=== PATIENT | female | born 1975 | race Caucasian/White ===

== ENCOUNTER → 2020-03-14 | Outpatient (CLI) | payer OTHER ==
[~2020-03-14] MED LIST: IBUPROFEN800 MG PO; NEURONTIN 300300 MG PO; PREDNISONE20 MG PO; ROBAXIN500 MG PO
[2020-03-14 12:36] LABS: HEMOGLOBIN 12.6 gm/dl (12.3-15.3); RED BLOOD COUNT 3.71 M/UL (4.00-5.10); WHITE BLOOD COUNT 4.2 K/UL (4.5-11.0)
[2020-03-14 13:02] LABS: BUN/CREATININE RATIO 16 (0-10)
== END ==
LOC: LAB 12:07
PROVIDERS: Family Medicine
DX: E78.2 Mixed hyperlipidemia (principal); N95.1 Menopausal and female climacteric states
CPT/HCPCS: 36415; 80053; 80061; 83001; 83002; 85027

== ENCOUNTER → 2020-04-13 | Outpatient (CLI) | payer OTHER | LOC: RAD 11:52 | DX: R05 Cough (principal) | CPT/HCPCS: 71046 ==

== ENCOUNTER → 2020-04-15 | Outpatient (CLI) | payer OTHER | LOC: MAMO 04-08 08:30 → EXRD 04-08 09:30 → MAMO 09:05 | DX: Z12.31 Encounter for screening mammogram for malignant neoplasm of breast (principal); Z13.820 Encounter for screening for osteoporosis; Z78.0 Asymptomatic menopausal state; Z79.52 Long term (current) use of systemic steroids; N63.20 Unspecified lump in the left breast, unspecified quadrant; N63.10 Unspecified lump in the right breast, unspecified quadrant; R92.1 Mammographic calcification found on diagnostic imaging of breast; M85.88 Other specified disorders of bone density and structure, other site | CPT/HCPCS: 77063; 77067; 77080 ==

== ENCOUNTER → 2020-05-25 | Outpatient (CLI) | payer OTHER | LOC: KOH-I 15:24 | DX: M79.604 Pain in right leg (principal); M79.605 Pain in left leg | CPT/HCPCS: 93922; 93925 ==

== ENCOUNTER → 2020-05-28 | Outpatient (CLI) | payer OTHER | LOC: MAMO 09:59 | DX: R92.8 Other abnormal and inconclusive findings on diagnostic imaging of breast (principal); N60.02 Solitary cyst of left breast; N60.01 Solitary cyst of right breast | CPT/HCPCS: 76641-LT; 76641-RT; 77066; G0279 ==

== ENCOUNTER → 2020-05-29 | Outpatient (CLI) | payer OTHER ==
[2020-05-29 09:41] LABS: HEMOGLOBIN 12.8 gm/dl (12.3-15.3); RED BLOOD COUNT 3.69 M/UL (4.00-5.10); WHITE BLOOD COUNT 5.9 K/UL (4.5-11.0)
[2020-05-29 10:08] LABS: BUN/CREATININE RATIO 22 (0-10)
== END ==
LOC: LAB 08:31
PROVIDERS: Family Medicine
DX: E78.2 Mixed hyperlipidemia (principal); R60.9 Edema, unspecified; R73.9 Hyperglycemia, unspecified
CPT/HCPCS: 36415; 80053; 80061; 83036; 85027

== ENCOUNTER → 2020-06-26 | Outpatient (CLI) | payer OTHER | LOC: EXRD 15:17 | DX: R10.9 Unspecified abdominal pain (principal) | CPT/HCPCS: 76775 ==

== ENCOUNTER 2020-08-21 17:08 | Emergency (ER) | payer OTHER | END 2020-08-21 22:33 | disposition home or self-care (01) | LOC: ER1 17:08 | DX: S16.1XXA Strain of muscle, fascia and tendon at neck level, initial encounter (principal); S39.012A Strain of muscle, fascia and tendon of lower back, initial encounter; S29.012A Strain of muscle and tendon of back wall of thorax, initial encounter; S63.501A Unspecified sprain of right wrist, initial encounter; S93.401A Sprain of unspecified ligament of right ankle, initial encounter; S46.911A Strain of unspecified muscle, fascia and tendon at shoulder and upper arm level, right arm, initial encounter; S46.912A Strain of unspecified muscle, fascia and tendon at shoulder and upper arm level, left arm, initial encounter; V49.40XA Driver injured in collision with unspecified motor vehicles in traffic accident, initial encounter; Y92.410 Unspecified street and highway as the place of occurrence of the external cause | CPT/HCPCS: 70450; 72072; 72100; 72125; 73030; 73110; 73600; 99284 ==

== ENCOUNTER → 2020-12-23 | Outpatient (CLI) | payer OTHER ==
[2020-12-23 09:49] LABS: BUN/CREATININE RATIO 16 (0-10)
== END ==
LOC: US 12-02 10:00 → MAMO 12-02 10:30 → US 09:03
PROVIDERS: Family Medicine
DX: R92.8 Other abnormal and inconclusive findings on diagnostic imaging of breast (principal); D73.89 Other diseases of spleen; E78.2 Mixed hyperlipidemia; R60.9 Edema, unspecified; M81.0 Age-related osteoporosis without current pathological fracture
CPT/HCPCS: 36415; 76705; 77066; 80053; 80061; 83735; G0279

== ENCOUNTER → 2021-03-31 | Outpatient (CLI) | payer OTHER | LOC: EXRD 14:50 | DX: J20.9 Acute bronchitis, unspecified (principal) | CPT/HCPCS: 71046 ==

== ENCOUNTER → 2021-05-04 | Outpatient (CLI) | payer OTHER ==
[2021-05-04 14:33] LABS: BUN/CREATININE RATIO 19 (0-10)
== END ==
LOC: LAB 13:44
PROVIDERS: Family Medicine
DX: R73.9 Hyperglycemia, unspecified (principal); E78.2 Mixed hyperlipidemia
CPT/HCPCS: 36415; 80048; 83036; 84100

== ENCOUNTER → 2021-08-31 | Outpatient (CLI) | payer OTHER ==
[2021-08-31 12:19] LABS: HEMOGLOBIN 11.3 gm/dl (12.3-15.3); RED BLOOD COUNT 3.09 M/UL (4.00-5.10); WHITE BLOOD COUNT 1.9 K/UL (4.5-11.0)
[2021-08-31 12:56] LABS: BUN/CREATININE RATIO 14 (0-10)
[2021-09-01 08:14] LABS: FERRITIN 213 ng/mL (15-150); IRON BIND.CAP.(TIBC) 314 ug/dL (250-450); IRON SATURATION 27 % (15-55); IRON, SERUM 86 ug/dL (27-159); UIBC 228 ug/dL (131-425)
[2021-09-01 09:14] LABS: FOLATE (FOLIC ACID), SERUM >20.0 ng/mL (>3.0)
== END ==
LOC: LAB 11:49
PROVIDERS: Family Medicine
DX: D64.9 Anemia, unspecified (principal); R79.89 Other specified abnormal findings of blood chemistry
CPT/HCPCS: 36415; 80053; 82607; 82728; 82746; 83540; 83550; 84443; 85025; 85045

== ENCOUNTER → 2021-09-20 | Outpatient (CLI) | payer OTHER ==
[2021-09-20 09:27] LABS: HEMOGLOBIN 12.7 gm/dl (12.3-15.3); RED BLOOD COUNT 3.54 M/UL (4.00-5.10); WHITE BLOOD COUNT 3.2 K/UL (4.5-11.0)
== END ==
LOC: LAB 08:53
PROVIDERS: Family Medicine
DX: D64.9 Anemia, unspecified (principal)
CPT/HCPCS: 36415; 82607; 82728; 83540; 83550; 85025; 85045